=== PATIENT | female | born 1965 | race Caucasian/White ===

== ENCOUNTER → 2017-01-02 | Outpatient (CLI) | payer MEDICARE ==
[~2017-01-02] MED LIST: ADVAIR 2501 DISK W/D PO; ALBUTEROL17 GM; ALBUTEROL17 GM INH; ALPRAZOLAM1 M1 PO; ASPIRIN PO; BACTRIM DS TABL1 TA1 PO; BETAMETHASONE; CALCIUM + D 6001 TA1 PO; CELEBREX; CELEBREX PO; CIPRO PO; FAMOTIDINE PO; FLEXERIL PO; FORTAMET1000 MG/B1 PO; HUMIRA40 MG/0.1 SQ; HUMULIN R100 U/ML SUBQ; HYDROCODON-ACE1 EAC5 PO; LAMICTAL; LAMICTAL PO; LANTUS100 U/ML INJ; LIDODERM30 EA TOP; LIPITOR; LIPITOR PO; LISINOPRIL PO; LOPRESSOR; LORTAB 10/500 T1 TAB PO; LORTAB 7.5-5001 TAB PO; MACROBID 100 M100 MG PO; METHOTREXATE2.5 MG PO; NABUMETONE500 M1 PO; NEURONTIN; NEURONTIN PO; NOVOLIN N100 U/ML; NOVOLIN R100 U/ML; NOVOLIN R100 U/ML INJ; PREMARIN CREAM; PROPRANOLOL PO; PYRIDIUM100 MG PO; RELPAX40 MG PO; RISPERIDONE; RISPERIDONE PO; SINGULAIR; SINGULAIR PO; SYNTHROID; SYNTHROID PO; TRAZODONE; TRAZODONE PO; TYLOX 5/500 CAP1 CAP PO; VIT B-12 PO; ZOLOFT PO; ZYRTEC PO
--- NOTE | ~2017-01-02 | MR18 ---
[facility] A Service of [facility] RADIOLOGY TEXT RESULTS PATIENT: CASSIDY RIZO LOCATION: CMRI : 63 UNIT #: [id number] AGE: [address]: Montana Palacios II, MD SEX: F ORDER DR: [id number] [id number] [facility]. [place], [place] [address] [id number] O MR#: [id number] Acc #: [id number] NAME: CASSIDY RIZO : 1965 SEX: F STUDY DATE/TIME: 01/02/2017 7:58 UNIT: CMRI ROOM: STUDY DESCRIPTION: MR Brain Wo Contrast Attending Physician: Montana Palacios II., M.D. Referring Physician: Montana Palacios II., M.D. Ordering Physician: Montana Palacios II., M.D. Primary Care Physician: Jenniffer Mahan M.D. MRI CENTER REPORT This report is preliminary unless electronic signature is present. EXAM Brain MRI HISTORY Dizziness, syncope and tremors for the past 2 years. TECHNIQUE Multiplanar imaging of the brain was performed with short and long TR. FINDINGS Diffusion weighted images are normal. The routine brain images show normal ventricular size. There are a few small foci of bright FLAIR signal in the periventricular deep white matter bilaterally consistent with mild chronic deep white matter ischemic change. There is no evidence of mass lesion, hemorrhage or edema. There is a mild empty sella configuration with the pituitary gland flattened along flattened along the floor of the sella. Extraaxial structures are otherwise unremarkable. IMPRESSION 1. Mild chronic deep white matter ischemic changes. 2. Mild empty sella configuration. 3. Otherwise negative study. No acute findings. Dictated by... Curtis Castnaeda M.D. THIS IS AN ELECTRONICALLY VERIFIED REPORT Curtis Castaneda M.D. at 01/02/2017 6:48 PM RLF/barbie TD: 01/02/2017 12:53 JOB #: [id number] [facility] A Service of [facility] RADIOLOGY TEXT RESULTS PATIENT: CASSIDY IRZO LOCATION: CMRI : 63 UNIT #: [id number] AGE: [address]: Montana Palacios II, MD SEX: F ORDER DR: MRI CENTER REPORT Page 1 of 1 COPY
--- NOTE | ~2017-01-02 | MR134 ---
[facility] A Service of [facility] RADIOLOGY TEXT RESULTS PATIENT: CASSIDY RIZO LOCATION: CMRI : 63 UNIT #: [id number] AGE: [address]: Montana Palacios II, MD SEX: F ORDER DR: [id number] [facility] [address] [place], [place] [address] [id number] O MR#: [id number] Acc #: [id number] NAME: CASSIDY RIZO : 1965 SEX: F STUDY DATE/TIME: 01/02/2017 8:27 UNIT: CMRI ROOM: STUDY DESCRIPTION: MR MRA Neck Wo Contrast Attending Physician: Montana Palacios II., M.D. Referring Physician: Montana Palacios II., M.D. Ordering Physician: Montana Palacios II., M.D. Primary Care Physician: Jenniffer Mahan M.D. MRI CENTER REPORT This report is preliminary unless electronic signature is present. EXAM Cervical carotid MR angiogram. HISTORY Tremors and dizziness for the past 2 years. TECHNIQUE MR angiographic imaging was performed across the carotid bifurcations with 2-D cqdn-ud-ctutdp and 3-D MRA techniques. FINDINGS Both bifurcations are widely patent. There is no evidence of stenosis or flow disturbance. No stenosis is seen by NASCET criteria. Antegrade flow is seen in both vertebral arteries. IMPRESSION Normal. Dictated by... Curtis Castaneda M.D. THIS IS AN ELECTRONICALLY VERIFIED REPORT Curtis Castaneda M.D. at 01/02/2017 6:48 PM BELA/nimisha TD: 01/02/2017 12:45 JOB #: [id number] MRI CENTER REPORT Page 1 of 1 COPY
--- NOTE | ~2017-01-02 | MR122 ---
[facility] A Service of [facility] RADIOLOGY TEXT RESULTS PATIENT: CASSIDY RIZO LOCATION: CMRI : 63 UNIT #: [id number] AGE: [address]: Montana Palacios II, MD SEX: F ORDER DR: [id number] [facility]. [place], [place] [address] [id number] O MR#: [id number] Acc #: [id number] NAME: CASSIDY RIZO : 1965 SEX: F STUDY DATE/TIME: 01/02/2017 8:17 UNIT: CMRI ROOM: STUDY DESCRIPTION: MR MRA Head Wo Contrast Attending Physician: Montana Palacios II., M.D. Referring Physician: Montana Palacios II., M.D. Ordering Physician: Montana Palacios II., M.D. Primary Care Physician: Jenniffer Mahan M.D. MRI CENTER REPORT This report is preliminary unless electronic signature is present. EXAM Intracranial MR angiogram. HISTORY Dizziness and tremors for the past 2 years. TECHNIQUE MR angiographic imaging was performed from the skull base to the [place] of [place]. FINDINGS In the posterior circulation, the vertebral is more dominant than the right. The basilar artery is widely patent. In the anterior circulation, both carotids are normal. There is no evidence of intracranial stenosis, branch vessel occlusion, or aneurysm. No vessel wall irregularity is seen. IMPRESSION Normal. Dictated by... Curtis Castaneda M.D. THIS IS AN ELECTRONICALLY VERIFIED REPORT Curtis Castaneda M.D. at 01/02/2017 6:48 PM RLF/nimisha TD: 01/02/2017 12:41 JOB #: [id number] [facility] A Service [facility] RADIOLOGY TEXT RESULTS PATIENT: CASSIDY RIZO LOCATION: CMRI : 63 UNIT #: [id number] AGE: [address]: Montana Palacios II, MD SEX: F ORDER DR: MRI CENTER REPORT Page 1 of 1 COPY
[2017-01-02 07:45] LABS: POC - CREATININE 1.97 mg/dL (0.44-1.03)
== END | disposition home or self-care (01) ==
LOC: CMRI 07:01
PROVIDERS: Psychiatry & Neurology Neurology
DX: G25.0 Essential tremor (principal); R90.82 White matter disease, unspecified; E23.6 Other disorders of pituitary gland
CPT/HCPCS: 70544; 70547; 70551; 82565